=== PATIENT | female | born 1945 | race Caucasian/White ===

== ENCOUNTER → 2023-08-03 16:14 | Outpatient (REF) | payer OTHER, SELFPAY | LOC: DHCBS MAIN 16:14 | PROVIDERS: ATTENDING PHYSICIAN Internal Medicine Cardiovascular Disease; FAMILY PHYSICIAN Family Medicine | DX: I10 Essential (primary) hypertension (principal); I48.19 Other persistent atrial fibrillation; Z98.890 Other specified postprocedural states | CPT/HCPCS: 93306 ==

== ENCOUNTER → 2023-09-03 15:24 | Outpatient (REF) | payer OTHER, SELFPAY | LOC: WDC 15:24 | PROVIDERS: ATTENDING PHYSICIAN Nurse Practitioner; FAMILY PHYSICIAN Family Medicine | DX: Z12.31 Encounter for screening mammogram for malignant neoplasm of breast (principal) | CPT/HCPCS: 77063; 77067 ==

== ENCOUNTER → 2023-12-01 13:56 | Outpatient (REF) | payer OTHER, SELFPAY | LOC: RAD 13:56 | PROVIDERS: ATTENDING PHYSICIAN Obstetrics & Gynecology; FAMILY PHYSICIAN Family Medicine | DX: M81.0 Age-related osteoporosis without current pathological fracture (principal) | CPT/HCPCS: 77080 ==

== ENCOUNTER → 2024-04-26 13:36 | Outpatient (REF) | payer OTHER, SELFPAY | LOC: HWRAD 13:36 | PROVIDERS: ATTENDING PHYSICIAN Internal Medicine Cardiovascular Disease; FAMILY PHYSICIAN Family Medicine; REFERRING PHYSICIAN Thoracic Surgery (Cardiothoracic Vascular Surgery) | DX: Z98.890 Other specified postprocedural states (principal); I25.10 Atherosclerotic heart disease of native coronary artery without angina pectoris; I50.32 Chronic diastolic (congestive) heart failure; R07.89 Other chest pain; Z01.818 Encounter for other preprocedural examination | CPT/HCPCS: 93880 ==

== ENCOUNTER → 2024-05-06 08:34 | Outpatient (REF) | payer OTHER, SELFPAY | LOC: MRI 08:34 | PROVIDERS: ATTENDING PHYSICIAN Podiatrist Foot & Ankle Surgery; FAMILY PHYSICIAN Family Medicine | DX: M19.072 Primary osteoarthritis, left ankle and foot (principal) | CPT/HCPCS: 73718 ==

== ENCOUNTER → 2024-05-12 14:09 | Outpatient (REF) | payer OTHER, SELFPAY | LOC: RAD 14:09 | PROVIDERS: ATTENDING PHYSICIAN Thoracic Surgery (Cardiothoracic Vascular Surgery); FAMILY PHYSICIAN Family Medicine | DX: R07.89 Other chest pain (principal); Z98.890 Other specified postprocedural states; Z01.818 Encounter for other preprocedural examination | CPT/HCPCS: 71250 ==

== ENCOUNTER 2024-05-26 06:06 | Day surgery (SDC) | payer OTHER, SELFPAY ==
[2024-05-26] VITALS (12 sets, daily range): BP systolic 144–178; BP diastolic 81–107; BMI 21.1
[2024-05-26 06:43] LABS: PT 12.6 Sec (11.4-14.6)
--- NOTE | 2024-05-26 06:53 | W.SUR.PREOP ---
Pre-Operative Surgical Note
-
I have examined this patient prior to the performance of the scheduled procedure.
The patient's condition is unchanged from the time of the current History and
Physical and the patient is able to undergo the scheduled procedure.
--- NOTE | 2024-05-26 06:54 | HP.FOC2 ---
Focused History & Physical
Chief Complaint
HPI:
Chief Complaint: Umbilical hernia
HPI / Indication for Planned Procedure: Open umbilical hernia repair with possible mesh
Relevant Past Medical History: Negative
Relevant Social History: Negative
Relevant Family History: Negative
Relevant Past Surgical History: Negative
Review of Systems
Review of Pertinent Systems: All Systems Negative
Medication
See Medication form for detailed medications: Yes
Medication List (including Herbals & OTC):
famotidine 20 mg tablet 20 - 40 mg PO DAILY Gastrointestinal issue 12/22/19
cholecalciferol (vitamin D3) 25 mcg (1,000 unit) tablet 1,000 units PO HS Supplement 12/25/20
ascorbic acid (vitamin C) 250 mg tablet 250 mg PO DAILYPRN PRN supplement 12/09/21
Lactobacillus 40-Bifidobact 3-S.thermophilus 100 billion cell capsule (Probiotic) 1 cap PO DAILYPRN PRN supplement 12/17/21
denosumab 60 mg/mL subcutaneous syringe (Prolia) 60 mg SC [id number] BONE 12/17/21
diltiazem HCl 120 mg capsule,extended release 24 hr (Cardizem CD) 120 mg PO DAILY Heart disease/condition 12/17/21
lisinopril 40 mg tablet 40 mg PO DAILY Blood pressure 12/17/21
gabapentin 300 mg capsule 300 mg PO DAILY 12/30/21
acetaminophen 500 mg tablet 500 mg PO DAILY 05/25/24
apixaban 2.5 mg tablet (Eliquis) 2.5 mg PO DAILY 05/25/24
apixaban 5 mg tablet (Eliquis) 5 mg PO HS 05/25/24
calcium carbonate (Calcium 600) 600 mg PO PRN PRN supplement 05/25/24
gabapentin 300 mg capsule 300 mg PO PRN PRN neuropathy 05/25/24
levothyroxine 150 mcg tablet (Synthroid) 150 mcg PO DAILY 05/25/24
perfluorohexyloctane (PF) 100 % eye drops (Miebo (PF)) 1 drp ophthalmic (eye) TID dry eye 05/25/24
tramadol 50 mg tablet 50 mg PO DAILY 05/25/24
Medications Reviewed: No
Allergies and Reactions
Patient has Allergies: Yes
Noted Allergies and Reactions:
Allergy/AdvReac Type Severity Reaction Status Date / Time
scallops Allergy erythema Verified 05/26/24 06:28
Sulfa (Sulfonamide Allergy Rash-1968 Verified 05/26/24 06:28
Antibiotics)
Pertinent Physical Exam
All Other Systems: Negative
Head/Neck: Normal
Diagnosis / Assessment
This is a 78-year-old female with an umbilical hernia and sternal wires that need to be removed.
Plan / Procedure
Plan joint operation with cardiothoracic surgery for an open umbilical hernia repair with possible mesh as well as sternal wire removal.
Anesthesia/Sedation to be done by Anesthesia Provider: Yes
--- NOTE | 2024-05-26 08:21 | W.IMMPOSTOP ---
Surgical Immed Post Op Note
-
Primary Surgeon: Eric Rahman MD
Assisting Surgeon: None
Pre-op Diagnosis: Umbilical hernia
Post-op Diagnosis: Same
Procedure Performed: Open umbilical hernia repair
Anesthesia Type: General
Specimen / Cultures: None
Estimated Blood Loss: 1 cc
Complications: None
Operative Findings: 0.5 cm umbilical hernia defect containing preperitoneal fat that was reduced to the abdomen. The defect was closed with 2 [id number] 0 Surgilon sutures.
--- NOTE | 2024-05-26 08:22 | OR.RPT ---
Operative Report
Operative Report
Patient Name: Ashwini Wang
: 1945
Date of Operation: 05/26/2024
Preoperative Diagnosis: Umbilical hernia
Postoperative Diagnosis: Same
Procedure(s):
Open umbilical hernia
Surgeon(s):
Dr. Rahman
[employer] French Teacher(s):
SAVANNA Rooney
Anesthesia: General
Estimated Blood Loss: 1 cc
Urine Output: None
Drains/Lines/Implants: None
Specimens: None
Indication for surgery:
The patient had a umbilical hernia. After review of their therapeutic options, they elected to pursue open repair In conjunction with cardiothoracic surgery for removal of sternal suture wires.
Operative Findings: 0.5 cm umbilical hernia defect containing preperitoneal fat that was reduced to the abdomen. The defect was closed with 2 vokkal-[id number]-[id number] 0 Surgilon sutures.
Details of the operation:
After successful induction of anesthesia, the patient was prepped and draped in the supine position. A team timeout was performed confirming administration of DVT prophylaxis, IV antibiotics and SCDs. The skin was anesthestized with 0.25% Marcaine
and an infraumbilical incision was made and dissection carried down to the fascia. The hernia sac was then encircled and carefully dissected off of the umbilical stalk before it was returned to the abdomen. The defect measured 0.5 cm. As such no
mesh was used. The defect was then closed in the transverse direction using two 0 Surgilon [id number]-ep-[id number] sutures. The umbilical stalk was then tacked down to the fascia with a 3-0 Vicryl suture. The dermis was then approximated with interrupted
3-0 Vicryl sutures followed by Dermabond. The patient returned to the Recovery Room in stable condition. Sponge and instrument counts were correct. No specimens sent to Pathology.
I was the attending physician and performed the procedure with assistance from the [employer] TEACHER above. I was present for all portions of the case
Eric Rahman MD
--- NOTE | 2024-05-26 08:28 | W.PN.CT.SURG ---
CT Surgery Operative Note
-
CARDIAC SURGERY OPERATIVE REPORT
Preoperative Diagnosis: Sternal wire pain
Postoperative Diagnosis: Same
Procedure(s) Performed: Sternal wire removal
Date of Surgery: 05/26/2024
Comorbidities:
1. Pain secondary to sternal wire
2. History of pulmonary embolism
3. History of atrial flutter/atrial fibrillation
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
5. Hypertension
6. Osteoarthritis
7. GERD
Attending Surgeon: Vinicius Santillan MD, MS
Assistants: Vinicius Cardoza PA-C (present and necessary to assistant toddler teacher, retraction, suction, exposure, suture management, and wound closure under my direction)
Anesthesiology: Chrissie Michael CRNA
Scrub and Circulating RNs: Bridget Vieira RN, Lisseth Weldon RN
Anesthesia: GETA
EBL: 5cc
Indication(s) for Procedures: This is a 78-year-old female who underwent previous open heart surgery by my former colleague on 01/06/2022 in the form of mitral valve repair with Bowen-Maze procedure. She later developed pain along her sternal wires.
Initially we tried interpretive management however over the last year, the pain discomfort has become progressive. Shared decision making is to perform a single anesthesia event with concomitant repair of her umbilical hernia.
Findings: A total of 7 stainless steel wire knot were removed, all wires were manually verified to be extracted. We did confirm on CXR the number and location of all wires prior.
Specimen(s): Multiple stainless steel sternal wires.
Description of Procedure: The patient was taken to the operating room. Their identity and procedure to be performed were verified and they were positioned supine on the operating table. Induction via general anesthesia with endotracheal intubation
was performed. The patient was then prepped and draped in a sterile fashion. A preoperative time-out was performed with all members of the team present. A 2 cm upper incision was created and flaps were extended cephalad and rostrally. The upper 3
sternal wires were removed with a single incision. Next the lower mid incision was created that is approximately 2 cm as well. All sternal wires and lower port of the sternum were also extracted after cutting. Wound was then closed in layers
after irrigation with local injection of anesthesia. Skin was closed with 4-0 Vicryl in a running fashion. Skin was then cleansed and sealed with Dermabond.
All instrument, sponge, and needle counts were confirmed to be correct x 2 at the end of the operation. The patient was hemodynamically stable throughout the entire procedure.
I, Dr. Vinicius Santillan, was present, scrubbed for, and performed all critical elements of this procedure.
Vinicius Santillan MD, MS
Cardiothoracic Surgeon
[facility]
This operative dictation was created using the [employer] dictation system. Please excuse any grammatical, typographical, or 'sound alike' errors
--- NOTE | 2024-05-26 08:36 | W.CVOR.SURPR ---
CVOR Surgeon Immed Pre Op
-
I have examined this patient prior to performance of the scheduled procedure.
The patient's condition is unchanged from the time of the dictated/written History and
Physical and the patient is able to undergo the scheduled procedure.
Sternal Wire Removal
[2024-05-26] MEDS: MORPHINE SULFATE 1 MG IV (09:09)
[2024-05-26] MEDS: ZOFRAN 4 MG IV (09:23)
== END 2024-05-26 12:30 | disposition home or self-care (01) ==
LOC: SDS 06:06
PROVIDERS: ATTENDING PHYSICIAN Thoracic Surgery (Cardiothoracic Vascular Surgery); FAMILY PHYSICIAN Family Medicine
DX: K42.9 Umbilical hernia without obstruction or gangrene (principal)
CPT/HCPCS: 49591; 85610

== ENCOUNTER → 2024-08-15 14:08 | Outpatient (REF) | payer OTHER, SELFPAY | LOC: WDC 14:08 | PROVIDERS: ATTENDING PHYSICIAN Nurse Practitioner; FAMILY PHYSICIAN Family Medicine | DX: Z12.31 Encounter for screening mammogram for malignant neoplasm of breast (principal) | CPT/HCPCS: 77063; 77067 ==

== ENCOUNTER 2024-08-15 15:20 | Emergency (ER) | payer OTHER, SELFPAY ==
[2024-08-15 15:23] VITALS: BP 179/119
[2024-08-15 16:13] LABS: % Basophils 0.7 % (0-2); % Eosinophils 1.4 % (0-6); % Immature Granulocytes 0.4 % (0-0.5); % Lymphocytes 21.7 % (20.5-51.1); % Monocytes 11.6 % (1.7-9.3); % Neutrophils 64.2 % (42.2-75.2); Absolute Eosinophils 0.1 10^3/uL (0-0.7); Absolute Lymphocytes 1.2 10^3/uL (1.2-3.4); Absolute Monocytes 0.7 10^3/uL (0.1-0.6); Absolute Neutrophils 3.6 10^3/uL (1.4-6.5); Hematocrit 34.7 % (37.0-47.0); Hemoglobin 11.6 g/dL (12.0-16.0); Mean Corp Hgb Conc. 33.4 g/dL (33.0-37.0); Mean Corpuscular Volume 98.6 fL (81.0-99.0); Mean Platelet Volume 9.8 fL (7.4-10.4); Nucleated Red Blood Cells % 0 %; Platelet Count 251 10^3/uL (130-400); Red Blood Cell Count 3.52 10^6/uL (4.20-5.40); Red Cell Dist. Width 13.8 % (11.5-14.5); White Blood Cell Count 5.7 10^3/uL (4.8-10.8)
[2024-08-15 16:26] LABS: ALT (SGPT) 17 U/L (0-35); AST (SGOT) 26 U/L (14-36); Albumin 4.9 g/dl (3.5-5.0); Alkaline Phosphatase 74 U/L (38-126); Blood Urea Nitrogen 25 mg/dl (7-17); Calcium 9.6 mg/dl (8.4-10.2); Carbon Dioxide 27 mmol/L (22-30); Chloride 95 mmol/L (98-107); Glucose 98 mg/dl (70-99); Potassium 4.5 mmol/L (3.5-5.1); Sodium 131 mmol/L (135-145); Total Bilirubin 0.8 mg/dl (0.2-1.3); eGFR > 60.00
[2024-08-15 16:33] LABS: Troponin I < 0.012 ng/ml
--- NOTE | 2024-08-15 19:19 | ED.GENMED ---
History of Present Illness
General
Chief Complaint: Blood Pressure Problem
Source: patient
Exam Limitations: none
Time Seen by Provider: 08/15/24 17:57
Nursing documentation reviewed up to this point in time: agreed with
History of Present Illness
History of Present Illness:
Patient with history of hypertension on lisinopril and diltiazem, presents to ED secondary to persistently elevated blood pressure over the past 5 days, along with sensation of 'other worldly'. Patient does have history of dehydration, and had been
recommended by his file drawer finisher to drink more fluids. Patient's daily fluid intake consists of water during the day, but mainly wine at nighttime. Denies headache. Denies dizziness. Denies blurred vision. Denies loss of sensation or weakness.
Denies chest pain or shortness of breath. Denies nausea or vomiting. Patient also does have chronic hip and back pain, for which she received ultrasound-guided steroid injection by her sports medicine physician 5 days ago. Patient reports
significant pain relief first couple days, but pain has come back since then. At her doctor's office, patient is taking tramadol daily for pain relief.
Past History
Past History
ED Past Medical History: Arrthythmia (afib), Asthma, GERD, Hypothyroidism and Other (OA)
ED Past Surgical History: Cardiac and Orthopedic (Left hip, spine)
Social History
Tobacco: Non-smoker
Alcohol: None
Drug: None
Personal:
Living: with family
Employment: Employed
Family History
Family History: Other (Noncontributory)
Review of Systems
Review of Systems
Allergies reviewed?: Yes
All Other Systems: ROS reviewed and negative except as documented in HPI and ROS
Constitutional: Reports no symptoms
EENT: Reports no symptoms
Respiratory: Reports no symptoms; Denies trouble breathing
Cardiac: Reports no symptoms; Denies chest pain
ABD/GI: Reports no symptoms
Musculoskeletal: Reports back pain and other (Hip pain)
Skin: Reports no symptoms
Neurological: Reports no symptoms; Denies dizzy, headache, weakness or numbness
Phy Exam
Physical Exam
Physical Exam:
Physical Exam
General: no apparent distress, not acutely ill. afebrile.
Head: nc/at. eomi
Neck: supple. normal range of motion.
Heart: s1/s2 regular rate and rhythm, no murmur.
Lungs: no acute respiratory distress. clear bilaterally
Abdomen: normal bowel sounds. not tender.
Neuro: alert and oriented x 3. no focal neurological deficits. normal speech.
Skin: no rash
Psychiatric: well kept. interactive and cooperative
Extremities: no edema. no calf tenderness.
Course
Orders/Labs/Results
Orders:
Orders
08/15/24 15:27
Electrocardiogram (*1) Urgent
Reason for Study: Hypertension, Benign
EKG- Treatment ONCE
08/15/24 15:51
Complete Blood Count/With Diff Urgent
Comprehensive Metabolic Panel Urgent
Troponin I Urgent
Abnormal Lab Results
08/15/24
15:51
RBC 3.52 L 10^6/uL
(4.20-5.40)
Hgb 11.6 L g/dL
(12.0-16.0)
Hct 34.7 L %
(37.0-47.0)
MCH 33.0 H pg
(27.0-31.0)
Absolute Monos (auto) 0.7 H 10^3/uL
(0.1-0.6)
Monocytes % 11.6 H %
(1.7-9.3)
Sodium 131 L mmol/L
(135-145)
Chloride 95 L mmol/L
(98-107)
BUN 25 H mg/dl
(7-17)
08/15/24 15:51
08/15/24 15:51
Vital Signs
Initial and Last Documented VS:
Initial Vital Signs
Temp Pulse Resp BP Pulse Ox
97.4 F 79 16 179/119 98
08/15/24 15:23 08/15/24 15:23 08/15/24 15:23 08/15/24 15:23 08/15/24 15:23
Last Documented Vital Signs
Temp Pulse Resp BP Pulse Ox
97.4 F 79 16 179/119 98
08/15/24 15:23 08/15/24 15:23 08/15/24 15:23 08/15/24 15:23 08/15/24 15:23
MDM/Problems Addressed
MDM/Problems Addressed:
Repeat BP: 148/89. Otherwise, patient remains asymptomatic. In reviewing patient's previous blood work, patient does appear to have chronic hyponatremia. When discussed with patient, patient states that it has been due to dehydration. As such,
patient will be advised to continue fluid administration at home, along with PCP follow-up, as well as repeat blood work in 2 weeks. In addition, advised patient to keep daily log of her blood pressure, to be discussed with her primary
file drawer finisher, Dr. Paz. No indication for any further workup at this time. Patient and spouse expressed understanding at time of discharge.
*Critical Care Note
Total Time (30-74mins, 75-104mins- exclusive of procedures): Not Applicable
ED Attending Note
-
Portions of this chart may have been created with voice recognition software.� Occasional wrong word or��sound alike� substitutions may have occurred due to the inherent limitations of voice recognition software.
Discharge Plan
Departure
Patient Disposition: Home (Routine Discharge)
Date of Disposition: 08/15/24
Time of Disposition: 19:20
Patient with high blood pressure during this ER visit?: Yes
Condition: Good
Discharge Problem:
Hypertension, Hyponatremia
Instructions: High Blood Pressure (DC), Hyponatremia
Prescriptions:
No Action
famotidine 20 MG tablet
20 - 40 mg PO DAILY
cholecalciferol (vitamin D3) 1,000 UNITS tablet
1,000 units PO HS
ascorbic acid (vitamin C) 250 MG tablet
250 mg PO DAILYPRN PRN (Reason: supplement)
diltiazem HCl [Cardizem CD] 120 mg Capsule,Extended Release 24hr
120 mg PO DAILY
lisinopril 40 mg Tablet
40 mg PO DAILY
Prolia 60 mg/mL Syringe
60 mg SC [id number]
Rx Instructions:
Next dose 08/2024
Probiotic 100 billion cell Capsule
1 cap PO DAILYPRN PRN (Reason: supplement)
gabapentin 300 mg Capsule
300 mg PO DAILY
acetaminophen 500 mg Tablet
500 mg PO DAILY
levothyroxine [Synthroid] 150 mcg Tablet
150 mcg PO DAILY
gabapentin 300 mg Capsule
300 mg PO PRN PRN (Reason: neuropathy)
Rx Instructions:
at HS PRN
Eliquis 2.5 mg Tablet
2.5 mg PO DAILY
Miebo (PF) 100 % Drops
1 drp OPHTHALMIC (EYE) TID
tramadol 50 mg tablet
50 mg PO DAILY
Eliquis 5 mg Tablet
5 mg PO HS
calcium carbonate [Calcium 600] 600 mg calcium (1,500 mg) Tablet
600 mg PO PRN PRN (Reason: supplement)
tramadol 50 mg tablet
25 mg PO Q6HPRN PRN (Reason: severe pain/breakthrough pain) Qty: 8 0RF
Referrals:
Ayden Paz MD [Active] -
Marty Jean Baptiste DO [Family Provider] -
Activity Restrictions/Additional Instructions:
As discussed, please follow-up with your primary care physician and/or file drawer finisher for further evaluation and treatment.
Interventions
Interventions:
*Risk Screen - Suicide Last Done: 08/15/24 15:27
*General Assessment Last Done: 08/15/24 19:28
*Neglect/Abuse Screening Last Done: 08/15/24 15:27
*ED- Fall Risk Assessment Last Done: 08/15/24 19:28
*ED COVID-19 Vaccine History Last Done: 08/15/24 19:28
*Nursing Disposition Last Done: 08/15/24 19:31
ED- Cardiac Assessment Last Done: 08/15/24 19:28
ED- Neurological Assessment Last Done: 08/15/24 19:28
ED- Pulmonary Assessment Last Done: 08/15/24 19:28
Discharge Date and Time
Discharge Date/Time: 08/15/24 19:32
Print Language: CHILEAN
== END 2024-08-15 19:32 | disposition home or self-care (01) ==
LOC: EMR 15:20
PROVIDERS: EMERGENCY PHYSICIAN Emergency Medicine; FAMILY PHYSICIAN Family Medicine; REFERRING PHYSICIAN Internal Medicine Cardiovascular Disease
DX: I10 Essential (primary) hypertension (principal); E87.1 Hypo-osmolality and hyponatremia; I48.91 Unspecified atrial fibrillation; J45.909 Unspecified asthma, uncomplicated; K21.9 Gastro-esophageal reflux disease without esophagitis; E03.9 Hypothyroidism, unspecified; Z79.899 Other long term (current) drug therapy
CPT/HCPCS: 99284; 80053; 84484; 85025; 93005

== ENCOUNTER → 2024-08-17 14:07 | Outpatient (REF) | payer OTHER, SELFPAY | LOC: HWEVLT 14:07 | PROVIDERS: ATTENDING PHYSICIAN Radiology Vascular & Interventional Radiology | DX: I83.893 Varicose veins of bilateral lower extremities with other complications (principal) | CPT/HCPCS: 93970 ==

== ENCOUNTER → 2024-09-04 14:45 | Outpatient (REF) | payer OTHER, SELFPAY | LOC: HWRAD 14:45 | PROVIDERS: ATTENDING PHYSICIAN Specialist; FAMILY PHYSICIAN Family Medicine | DX: R10.84 Generalized abdominal pain (principal) | CPT/HCPCS: 76700 ==

== ENCOUNTER → 2024-09-29 12:58 | Outpatient (REF) | payer OTHER, SELFPAY | LOC: RAD 12:58 | PROVIDERS: ATTENDING PHYSICIAN Family Medicine | DX: R91.8 Other nonspecific abnormal finding of lung field (principal) | CPT/HCPCS: 71250 ==

== ENCOUNTER → 2024-11-24 12:59 | Outpatient (REF) | payer OTHER, SELFPAY | LOC: RAD 12:59 | PROVIDERS: ATTENDING PHYSICIAN Family Medicine | DX: R05.1 Acute cough (principal) | CPT/HCPCS: 71046 ==

== ENCOUNTER → 2025-01-08 14:51 | Outpatient (REF) | payer OTHER, SELFPAY | LOC: HWRCS 14:51 | PROVIDERS: ATTENDING PHYSICIAN Internal Medicine Cardiovascular Disease; FAMILY PHYSICIAN Family Medicine | DX: Z98.890 Other specified postprocedural states (principal); I50.32 Chronic diastolic (congestive) heart failure | CPT/HCPCS: 93306 ==

== ENCOUNTER → 2025-01-25 12:26 | Outpatient (REF) | payer OTHER, SELFPAY | LOC: RAD 12:26 | PROVIDERS: ATTENDING PHYSICIAN Internal Medicine Critical Care Medicine; FAMILY PHYSICIAN Family Medicine | DX: J18.9 Pneumonia, unspecified organism (principal) | CPT/HCPCS: 71046 ==